=== PATIENT | male | born 1940 | race Caucasian/White ===

== ENCOUNTER → 2016-08-21 | Outpatient (CLI) | payer OTHER ==
[~2016-08-21] MED LIST: ASPIRIN PO; ASPIRIN81 MG PO; CERTAGEN PO; LIPITOR20 MG PO; OMEPRAZOLE20 M1 PO; ZESTORETIC 10-1 EAC1 PO
--- NOTE | ~2016-08-21 | MR113 ---
[facility] A Service of [facility] & [facility] [place] RADIOLOGY TEXT RESULTS PATIENT: JUNIE GANT LOCATION: [facility] : 41 UNIT #: [id number] AGE: [address]: Asim Keller MD SEX: M ORDER DR: [id number] [address] [address] [id number] O MR#: [id number] Acc #: [id number] NAME: JUNIE GANT : 1940 SEX: M STUDY DATE/TIME: 08/21/2016 9:22 UNIT: [facility] ROOM: STUDY DESCRIPTION: MR Lumbar Wo Contrast Attending Physician: Asim Keller M.D. Referring Physician: Asim Keller M.D. Ordering Physician: Asim Keller M.D. Primary Care Physician: Asim Keller M.D. MRI CENTER REPORT This report is preliminary unless electronic signature is present. EXAM MRI of the lumbar spine without contrast dated 08/21/2016 COMPARISON Plain films lumbar spine dated 08/16/2016 HISTORY Increasing low back pain, particularly in the right side with right lower extremity and left foot radiculopathy for about 4 months. FINDINGS Multisequence multiplanar imaging of the lumbar spine was obtained without contrast. 6.5 mm retrolisthesis of S1 is seen with respect to L5 with mild associated edematous endplate changes. There are bilateral L5 pars defects. Disc osteophyte complex are noted throughout the visualized lumbar spine with a large disc herniation at the level of L2-3. Refer below. Fatty marrow changes are noted in the lower lumbar and in the sacral spine particularly from L3 downwards. Conus terminates at upper L1. There is prominence of epidural fat pad posteriorly causing mass effect on the thecal sac at multiple levels of the lumbar spine. Part of the mass effect on the thecal sac is related to ligamentum flavum thickening and facet changes which displace the fat anteriorly compressing the thecal sac and part of it could be related to mild epidural lipomatosis. Benign. Retroperitoneum is unremarkable. L1-2: Disc osteophyte complex which is asymmetrically prominent in bilateral foraminal to extraforaminal regions, worse on the left. Moderate to severe left and moderate right neural foraminal narrowing are noted with mild bilateral facet changes and borderline sized canal. L2-3: Disc osteophyte complex is seen which is asymmetrically prominent in bilateral foraminal to extraforaminal regions particularly in the left extraforaminal region. There is severe left facet hypertrophic change, severe canal stenosis, severe right and kcgr-fa-yyijxifz left lateral STS. [facility] A Service of [facility] RADIOLOGY TEXT RESULTS PATIENT: JUNIE GANT LOCATION: [facility] : 41 UNIT #: [id number] AGE: [address]: Asim Keller MD SEX: M ORDER DR: recess stenosis. There is a large right subarticular disc extrusion with superior and inferior migration of 1.8 cm. Axially it measures at least 8.5 x 12.0 mm. Zzmugdlt-oh-ivrjfs left and moderate right neural foraminal narrowing are present. L3-4: Disc osteophyte complex which is asymmetrically prominent in bilateral foraminal to extraforaminal regions, causing severe bilateral neural foraminal narrowing. Mild to moderate right and hqhvihin-rl-ztomdl left lateral recess stenosis is seen with severe canal stenosis. Moderate bilateral facet hypertrophic changes are noted. L4-5: Disc osteophyte complex with moderate to severe left and mild to moderate right facet hypertrophic change. Severe canal stenosis is seen particularly in the transverse dimension. There is severe left and eyknmxdy-be-hpxped right neural foraminal narrowing with hkpkvghs-tf-npjafj bilateral lateral recess stenosis. L5-S1: Disc osteophyte complex with severe bilateral neural foraminal narrowing and zusb-nu-mnxgyhpd bilateral facet hypertrophic changes. There is shsjmkkz-lj-zfcfvi mass effect on the thecal sac with prominence of posterior epidural fat causing mass effect on it also. IMPRESSION 1. Multilevel significant degenerative changes are noted, worse at L2-3 with a 0.8 x 1.2 x 1.8 cm right subarticular disc large extrusion with superior and inferior migration. It causes severe impingement of right L3 nerve root to the right lateral recess and severe canal stenosis. Left lateral recess and bilateral neural foraminal narrowing are also seen at this level. 2. There is retrolisthesis of S1 with respect to L5 (6.0 mm) with bilateral L5 pars defects. 3. Refer above. 1. Dictated by... Janneth Alvares M.D. THIS IS AN ELECTRONICALLY VERIFIED REPORT Janneth Alvares M.D. at 08/24/2016 12:36 PM CPR/gerardo TD: 08/22/2016 13:20 JOB #: [id number] MRI CENTER REPORT Page 1 of 1
== END | disposition home or self-care (01) ==
LOC: SMRI 08:09
DX: M43.10 Spondylolisthesis, site unspecified (principal); M47.816 Spondylosis without myelopathy or radiculopathy, lumbar region; M51.26 Other intervertebral disc displacement, lumbar region; M48.06 Spinal stenosis, lumbar region; M43.18 Spondylolisthesis, sacral and sacrococcygeal region
CPT/HCPCS: 72148

== ENCOUNTER 2016-11-13 10:17 | Emergency (ER) | payer OTHER ==
--- NOTE | ~2016-11-13 | CR72 ---
[facility] A Service of [facility] & [facility] RADIOLOGY TEXT RESULTS PATIENT: JUNIE GANT LOCATION: [facility] : 41 UNIT #: [id number] AGE: [address]: Wilfrid Morrow MD SEX: M ORDER DR: [id number] [facility] [address] [place], [place] [address] [id number] E MR#: [id number] Acc #: [id number] NAME: JUNIE GANT. : 1940 SEX: M STUDY DATE/TIME: 11/13/2016 11:10 UNIT: [facility] ROOM: STUDY DESCRIPTION: CR Chest Single View Portable Attending Physician: Wilfrid Morrow M.D. Ordering Physician: Wilfrid Morrow M.D. Primary Care Physician: Asim Keller M.D. MEDICAL IMAGING REPORT This report is preliminary unless electronic signature is present EXAM Portable chest HISTORY Hypotension and elevated heart rate today. Compared with 05/24/08 FINDINGS The lung andres are clear. Heart size normal. Mildly tortuous aorta. Probable hiatal hernia. IMPRESSION No active disease Dictated by... Dipak Tejada M.D. THIS IS AN ELECTRONICALLY VERIFIED REPORT Dipak Tejada M.D. at 11/13/2016 4:00 PM SHAYLEE/aakash TD: 11/13/2016 14:24 JOB #: [id number] MEDICAL IMAGING REPORT Page 1 of 1 COPY
--- NOTE | ~2016-11-13 | EKG ---
PATIENT: JUNIE GANT UNIT #: [id number] Ventricular Rate: 97 BPM Atrial Rate: 97 BPM P-R Interval: 210 ms QRS Duration: 88 ms Q-T Interval: 362 ms QTC Calculation(Bezet): 459 ms P [place]: 44 degrees Calculated R [place]: 29 degrees Calculated T [place]: 25 degrees Diagnosis Line: Sinus rhythm with 1st degree A-V block Diagnosis Line: Otherwise normal ECG Diagnosis Line: No previous ECGs available Diagnosis Line: Confirmed by SAMANTHA KELLOGG MD ([id number]) on Diagnosis Line: 11/13/2016 10:10:54 PM INTERPRETING MD: MARRY
[~2016-11-13 10:17] MED LIST changes: -ASPIRIN81 MG PO; -LIPITOR20 MG PO; -OMEPRAZOLE20 M1 PO; -ZESTORETIC 10-1 EAC1 PO
[2016-11-13] MEDS ORDERED: ASPIRIN81 MG PO (10:51)
[2016-11-13] MEDS ORDERED: LIPITOR20 MG PO (10:51)
[2016-11-13] MEDS ORDERED: OMEPRAZOLE20 M1 PO (10:52)
[2016-11-13] MEDS ORDERED: ZESTORETIC 10-1 EAC1 PO (10:52)
[2016-11-13 11:12] LABS: BASOPHIL% 0.3 % (0-2.5); DIFF IND NO; EOSINOPHIL# 0.1 X10e3 (0-0.7); EOSINOPHIL% 1.3 % (0.0-7.0); HEMATOCRIT 36.9 % (38.0-50.0); HEMOGLOBIN 12.1 gm/dL (13.0-16.0); LYMPHOCYTE# 1.4 X10e3 (1.0-3.5); LYMPHOCYTE% 20.7 % (17.0-45.0); MEAN CELL VOLUME 88.1 FL (83-96); MEAN CORPUSCULAR HEMOGLOBIN 28.8 PG (28-34); MEAN CORPUSCULAR HGB CONC 32.7 g/dL (30-36); MEAN PLATELET VOLUME 7.3 FL (6.5-11.5); MONOCYTE# 0.4 X10e3 (0-1.0); MONOCYTE% 5.8 % (3.0-12.0); NEUTROPHIL# 4.9 X10e3 (1.5-7.1); NEUTROPHIL% 71.9 % (40-75); PLATELET COUNT 308 X10e3 (140-420); RED BLOOD COUNT 4.19 X10e (3.90-5.60); RED CELL DISTRIBUTION WIDTH 12.8 % (11.0-15.5); WHITE BLOOD COUNT 6.8 X10e3 (4.0-10.5)
[2016-11-13 11:43] LABS: ALBUMIN SERUM 3.8 g/dL (3.5-5.0); BILIRUBIN, DIRECT 0.1 mg/dL (0.0-0.2); BILIRUBIN,TOTAL 0.1 mg/dL (0.2-2.0); CREATININE SERUM 0.9 mg/dL (0.6-1.4); GLOM FILT RATE Estimated 83.3 mL/min (>60); POTASSIUM 4.3 mmol/L (3.5-5.1); PROTEIN TOTAL SERUM 7.7 g/dL (6.0-8.3)
[2016-11-13 11:51] LABS: URINE SOURCE CLEAN CATCH
[2016-11-13 11:59] LABS: URINE APPEARANCE CLEAR; URINE BILIRUBIN NEG (NEG); URINE BLOOD NEG (NEG); URINE COLOR YELLOW; URINE GLUCOSE NEG (NEG); URINE KETONE NEG (NEG); URINE LEUKOCYTE ESTERASE NEG (NEG); URINE NITRATE NEG (NEG); URINE PH 6.5 (5-8); URINE PROTEIN NEG (NEG); URINE SPECIFIC GRAVITY 1.015 (1.003-1.035)
[2016-11-13 12:04] LABS: CULTURE INDICATED? NO
== END 2016-11-13 12:37 | disposition home or self-care (01) ==
LOC: CED 10:17
PROVIDERS: Emergency Medicine
DX: I95.2 Hypotension due to drugs (principal); T40.2X5A Adverse effect of other opioids, initial encounter; T48.1X5A Adverse effect of skeletal muscle relaxants [neuromuscular blocking agents], initial encounter; Z79.82 Long term (current) use of aspirin; Z79.899 Other long term (current) drug therapy; Y92.9 Unspecified place or not applicable
CPT/HCPCS: 36415; 71010; 80048; 80076; 81003; 82947; 85025; 93005; 96360; 99284

== ENCOUNTER → 2017-01-01 | Outpatient (CLI) | payer OTHER ==
[~2017-01-01] MED LIST changes: +ASPIRIN81 MG PO; +LIPITOR20 MG PO; +OMEPRAZOLE20 M1 PO; +ZESTORETIC 10-1 EAC1 PO
--- NOTE | ~2017-01-01 | US37 ---
[facility] A Service of [facility] & [facility] RADIOLOGY TEXT RESULTS PATIENT: JUNIE GANT LOCATION: [facility] : 42 UNIT #: [id number] AGE: [address]: JOEL MCGREGOR APRN SEX: M ORDER DR: [id number] [facility] [address] [place], [place] [address] [id number] O MR#: [id number] Acc #: [id number] NAME: JUNIE GANT : 1940 SEX: M STUDY DATE/TIME: 01/01/2017 9:33 UNIT: [facility] ROOM: STUDY DESCRIPTION: US Carotid W/Doppler Bilateral Attending Physician: Joel Mcgregor Aprn Referring Physician: Joel Mcgregor Aprn Ordering Physician: Joel Mcgregor Aprn Primary Care Physician: Asim Keller M.D. MEDICAL IMAGING REPORT This report is preliminary unless electronic signature is present EXAM Bilateral carotid duplex. HISTORY Carotid atherosclerosis. FINDINGS Duplex imaging of the carotid arteries was performed. The right common carotid artery is patent. Heterogeneous plaque is seen in the right internal and external carotid arteries. Velocity in the right common carotid is 65. Internal is 70. External is 93 cm/second. Right IC/CC ratio is 1.1. On the left side, the common carotid artery is patent. Heterogeneous plaque is seen in the left internal and external carotid arteries which is severe. Velocity in the left common carotid is 66. Internal is 190/48 proximally, 142 in the mid portion and 43 distally. External is increased at 230 cm/second. Left IC/CC ratio is 2.8. Antegrade flow is seen in the right and left vertebral arteries. IMPRESSION Plaque with less than 50% stenosis is seen in the right internal carotid artery. Plaque with 50 to 69% stenosis is seen in the left internal carotid artery. Antegrade flow is seen in the right and left vertebral arteries. Dictated by... Roel Vazquez M.D. THIS IS AN ELECTRONICALLY VERIFIED REPORT Roel Vazquez M.D. at 01/16/2017 2:15 PM SA/bd [facility] A Service of [facility] & [facility] RADIOLOGY TEXT RESULTS PATIENT: JUNIE GANT LOCATION: [facility] : 41 UNIT #: [id number] AGE: [address]: JOEL MCGREGOR APRN SEX: M ORDER DR: TD: 01/02/2017 06:54 JOB #: [id number] MEDICAL IMAGING REPORT Page 1 of 1 COPY
== END | disposition home or self-care (01) ==
LOC: CNIV 08:58
DX: I65.29 Occlusion and stenosis of unspecified carotid artery (principal); I65.23 Occlusion and stenosis of bilateral carotid arteries
CPT/HCPCS: 93880